=== PATIENT | female | born 1990 | race Two or more races ===

== ENCOUNTER 2017-08-15 20:25 | Emergency (ER) | payer BC, OTHER ==
[~2017-08-15] VITALS: Ht 162.6 cm; Wt 58.0 kg
[2017-08-15 20:27] VITALS: Ht 162.6 cm; Wt 58.0 kg
[2017-08-15] MEDS ORDERED: ACETAMINOPHEN 500 MG TAB PO STA (20:57)
[2017-08-15] MEDS ORDERED: IBUPROFEN 200 MG TAB PO ONE (21:00)
--- NOTE | 2017-08-15 21:04 | ERD ---
ER Documentation Chief Complaint Date/Time DATE: 08/15/17 TIME: 21:00 Chief Complaint sore throat x 7 days, completed abx- amox HPI This is a 26 year old female presents to ER with sore throat and fever x 2 weeks. Patient states she has painful swallowing. No difficulty swallowing or drooling. No shortness of breath or difficult breathing. No chest pain. Patient states about 2 weeks ago she went to an outside facility and was prescribed amoxicillin. Patient states her sore throat improved after being on amoxicillin for a few days. Patient states soon after finishing the medication , she developed another severe sore throat. Patient went to her dentist and was prescribed azithromycin. Patient states she has been not on medication for 2 days and continues to have sore throat and fever. Patient states temperature max of 101.7F at home. She took Tylenol at home with last dose around 2 PM today. ROS All systems reviewed and are negative except as per history of present illness. Medications Home Meds Active Scripts Ibuprofen* (Motrin*) 600 Mg Tab, 600 MG PO Q6, #20 TAB Prov:SIMONE MONSIVAIS MD 08/16/17 Prednisone* (Prednisone*) 20 Mg Tab, 40 MG PO DAILY for 3 Days, TAB Start August 17, 2017 Prov:SIMONE MONSIVAIS MD 08/16/17 Clindamycin Hcl* (Clindamycin Hcl*) 300 Mg Capsule, 300 MG PO QID for 10 Days, CAP Prov:SIMONE MONSIVAIS MD 08/16/17 Hydrocodone/Acetaminophen ([place] 5-325 Tablet) 1 Each Tablet, 1 TAB PO Q6H Y for PAIN, #7 TAB Prov:PEPE REGALADO NP 08/15/17 Amoxicillin* (Amoxicillin*) 500 Mg Cap, 500 MG PO BID for 10 Days, CAP Prov:PEPE REGALADO NP 08/15/17 Discontinued Scripts Ibuprofen* (Motrin*) 400 Mg Tab, 400 MG PO Q6, #30 TAB Prov:PEPE REGALADO NP 08/15/17 Allergies Allergies: Coded Allergies: No Known Allergy (Unverified , 08/16/17) PMhx/Soc Medical and Surgical Hx: pt denies Surgical Hx History of Surgery: No Anesthesia Reaction: No Hx Neurological Disorder: No Hx Respiratory Disorders: No Hx Cardiac Disorders: No Hx Psychiatric Problems: No Hx Miscellaneous Medical Probl: Yes (Sinusitis,Tonsillitis) Hx Alcohol Use: No Hx Substance Use: No Hx Tobacco Use: No Smoking Status: Never smoker Physical Exam Vitals Vital Signs Date Time Temp Pulse Resp B/P Pulse Ox O2 Delivery O2 Flow Rate FiO2 08/15/17 22:54 98.7 89 103/59 98 Room Air 08/15/17 20:27 101.8 112 20 121/80 100 Physical Exam Const: Alert Head: Atraumatic Eyes: Normal Conjunctiva ENT: Normal External Ears, Nose and Mouth. Slight exudate to posterior pharynx and left tonsil. Uvula is midline. No peritonsillar abscess. Neck: Full range of motion..~ No meningismus. Resp: Clear to auscultation bilaterally Cardio: Regular rate and rhythm, no murmurs Abd: Soft, non tender, non distended. Normal bowel sounds Skin: No petechiae or rashes Back: No midline or flank tenderness Ext: No cyanosis, or edema Neur: Awake and alert Psych: Normal Mood and Affect Result Diagram: 08/15/17211208/15/172112 Results 24 hrs Laboratory Tests Test 08/15/17 21:13 White Blood Count 13.210^3/ul Red Blood Count 4.2710^6/ul Hemoglobin 12.6g/dl Hematocrit 38.0% Mean Corpuscular Volume 89.0fl Mean Corpuscular Hemoglobin 29.5pg Mean Corpuscular Hemoglobin Concent 33.2g/dl Red Cell Distribution Width 12.5% Platelet Count 73841^3/UL Mean Platelet Volume 11.6fl Neutrophils % 81.5% Lymphocytes % 10.3% Monocytes % 7.3% Eosinophils % 0.2% Basophils % 0.4% Nucleated Red Blood Cells % 0.0/100WBC Neutrophils # 10.810^3/ul Lymphocytes # 1.410^3/ul Monocytes # 1.010^3/ul Eosinophils # 0.010^3/ul Basophils # 0.110^3/ul Nucleated Red Blood Cells # 0.010^3/ul Sodium Level 140mmol/L Potassium Level 4.2mmol/L Chloride Level 101mmol/L Carbon Dioxide Level 27mmol/L Anion Gap 16 Blood Urea Nitrogen 8mg/dl Creatinine 0.83mg/dl Glucose Level 98mg/dl Lactic Acid Level 0.8mmol/L Calcium Level 9.5mg/dl Monoscreen Negative Current Medications Medications (Trade) Dose Ordered Sig/Mu Route PRN Reason Start Time Stop Time Status Last Admin Dose Admin Ibuprofen (Motrin) 400 mg ONCE ONCE PO 08/15/17 21:00 08/15/17 21:01 DC 08/15/17 21:15 Acetaminophen (Tylenol Tab) 500 mg ONCE STAT PO 08/15/17 20:57 08/15/17 21:00 DC 08/15/17 21:14 Procedures/MDM MDM: This is a 26-year-old female presenting to the emergency department for sore throat and fever 2 weeks. Patient has temp of 101.8F and heart rate 1 12 bpm upon arrival to ED. Patient given Tylenol and Motrin p.o. Labs drawn. Rapid strep, throat culture and Monospot ordered. Differential diagnosis includes but not limited to strep pharyngitis, pneumonia , viral pharyngitis, influenza, coxsackievirus, herpes simplex virus, Nile- Marie virus, Respiratory syncytial virus and otitis media. Patient likely has viral pharyngitis. Patient is appropriate for outpatient management and will be discharged with prescription for Motrin and Amoxicillin. Instructed patient to follow up with primary care provider in the next 2-3 days for reassessment.Return to ED for any high fever, chest pain, difficulty breathing, shortness breath, wheezing, vomiting, diarrhea, abdominal pain or any new or worsening symptoms. Patient verbalizes understanding. All questions answered at discharge. Disclaimer: Inadvertent spelling and grammatical errors are likely due to EHR/ dictation software use and do not reflect on the overall quality of patient care. Also, please note that the electronic time recorded on this note does not necessarily reflect the actual time of the patient encounter. Departure Diagnosis: Primary Impression: Sore throat Condition: Stable PEPE REGALADO NP Aug 15, 2017 21:04
[2017-08-15 21:25] LABS: BASOPHIL # 0.1 10^3/ul (0.0-0.1); BASOPHILS % 0.4 % (0.0-2.0); EOSINOPHILS % 0.2 % (0.0-7.0); HEMOGLOBIN 12.6 g/dl (12.0-16.0); LYMPHOCYTES # 1.4 10^3/ul (0.8-2.9); LYMPHOCYTES % 10.3 % (15.0-51.0); MEAN CORPUSCULAR HEMOGLOBIN 29.5 pg (29.0-33.0); MEAN CORPUSCULAR HGB CONC 33.2 g/dl (32.0-37.0); MEAN PLATELET VOLUME 11.6 fl (7.4-10.4); MONOCYTES % 7.3 % (0.0-11.0); NEUTROPHIL # 10.8 10^3/ul (1.6-7.5); NEUTROPHILS % 81.5 % (39.0-77.0); PLATELET COUNT 174 10^3/UL (140-415); RED BLOOD COUNT 4.27 10^6/ul (4.20-5.40); RED CELL DISTRIBUTION WIDTH 12.5 % (11.5-14.5); WHITE BLOOD COUNT 13.2 10^3/ul (4.8-10.8)
[2017-08-15 21:59] LABS: CALCIUM 9.5 mg/dl (8.4-10.2); CREATININE 0.83 mg/dl (0.44-1.00); POTASSIUM 4.2 mmol/L (3.5-5.1)
[2017-08-15 22:54] VITALS: BP 103/59; PULSE 89; TEMP 98.7
[2017-08-15] MEDS ORDERED: IBUP400T22 PO (23:04)
[2017-08-15] MEDS ORDERED: AMOX500C2 PO (23:04)
[2017-08-15] MEDS ORDERED: HYDR-906 PO (23:19)
[2017-08-16] MEDS ORDERED: IBUP-1542 PO (14:31)
[2017-08-16] MEDS ORDERED: PRED20TA PO (14:31)
[2017-08-16] MEDS ORDERED: CLIN-73 PO (14:31)
== END 2017-08-15 23:30 | disposition home or self-care (01) ==
LOC: FTE 20:25
DX: J02.9 Acute pharyngitis, unspecified (principal)
CPT/HCPCS: 36415; 80048; 83605; 85025; 86308; 87070; 87400; 87880; Z7502; Z7610; 99284

== ENCOUNTER 2017-08-16 11:42 | Emergency (ER) | payer OTHER ==
[~2017-08-16] VITALS: Ht 160 cm; Wt 57.0 kg
[~2017-08-16 11:42] MED LIST: AMOX500C2 PO; HYDR-906 PO; IBUP400T22 PO
[2017-08-16 11:45] VITALS: Ht 160 cm; Wt 57.0 kg
[2017-08-16] MEDS ORDERED: ONDANSETRON 4 MG INJ IV STA (12:12)
[2017-08-16] MEDS ORDERED: KETOROLAC 30 MG INJ IV STA (12:12)
[2017-08-16] MEDS ORDERED: SOD CHLORIDE 0.9% 1,000 ML IV STA (12:12)
[2017-08-16] MEDS ORDERED: ACETAMINOPHEN 325 MG TAB PO ONE (12:30)
[2017-08-16 13:04] LABS: ALBUMIN 4.5 g/dl (3.3-4.9); ALBUMIN/GLOBULIN RATIO 1.02; BILIRUBIN,INDIRECT 0.4 mg/dl (0-1.1); BILIRUBIN,TOTAL 0.4 mg/dl (0.2-1.3); CALCIUM 9.5 mg/dl (8.4-10.2); CREATININE 0.87 mg/dl (0.44-1.00); POTASSIUM 3.8 mmol/L (3.5-5.1); TOTAL PROTEIN 8.9 g/dl (6.1-8.1)
[2017-08-16 13:05] LABS: BASOPHILS % 0.3 % (0.0-2.0); EOSINOPHILS % 0.1 % (0.0-7.0); HEMATOCRIT 37.3 % (37.0-47.0); HEMOGLOBIN 12.5 g/dl (12.0-16.0); LYMPHOCYTES # 1.1 10^3/ul (0.8-2.9); LYMPHOCYTES % 7.7 % (15.0-51.0); MEAN CORPUSCULAR HEMOGLOBIN 29.7 pg (29.0-33.0); MEAN CORPUSCULAR HGB CONC 33.5 g/dl (32.0-37.0); MEAN CORPUSCULAR VOLUME 88.6 fl (82.0-101.0); MONOCYTE # 1.5 10^3/ul (0.3-0.9); MONOCYTES % 10.1 % (0.0-11.0); NEUTROPHIL # 11.7 10^3/ul (1.6-7.5); NEUTROPHILS % 81.2 % (39.0-77.0); PLATELET COUNT 158 10^3/UL (140-415); RED BLOOD COUNT 4.21 10^6/ul (4.20-5.40); RED CELL DISTRIBUTION WIDTH 12.6 % (11.5-14.5); WHITE BLOOD COUNT 14.4 10^3/ul (4.8-10.8)
[2017-08-16] MEDS ORDERED: DEXAMETHASONE 10 MG/ML 1 ML INJ IV ONE (13:30)
[2017-08-16] MEDS ORDERED: CEFTRIAXONE 1 GM/50 ML (PMX) 50 ML IVPB ONE (14:30)
[2017-08-16] MEDS ORDERED: PRED20TA PO (14:31)
[2017-08-16] MEDS ORDERED: IBUP-1542 PO (14:31)
[2017-08-16] MEDS ORDERED: CLIN-73 PO (14:31)
--- NOTE | 2017-08-16 14:36 | ERD ---
ER Documentation Chief Complaint Date/Time DATE: 08/16/17 TIME: 14:33 Chief Complaint FEVER , SORE THROAT X 2 WEEKS HPI This 26-year-old female presents with complaints of fever and sore throat intermittent for the last 2 weeks. She was seen initially and prescribed Augmentin. She has some improvements. Fevers and symptoms worsen over the last few days. She denies cough, vomiting, abdominal pain, diarrhea. She is currently taking amoxicillin and Hope. She was seen here yesterday and had slight leukocytosis with negative flu test, negative strep and negative mono. As well for temperature at triage today. ROS All systems reviewed and are negative except as per history of present illness. Medications Home Meds Active Scripts Ibuprofen* (Motrin*) 600 Mg Tab, 600 MG PO Q6, #20 TAB Prov:SIMONE MONSIVAIS MD 08/16/17 Prednisone* (Prednisone*) 20 Mg Tab, 40 MG PO DAILY for 3 Days, TAB Start August 17, 2017 Prov:SIMONE MONSIVAIS MD 08/16/17 Clindamycin Hcl* (Clindamycin Hcl*) 300 Mg Capsule, 300 MG PO QID for 10 Days, CAP Prov:SIMONE MONSIVAIS MD 08/16/17 Hydrocodone/Acetaminophen ([place] 5-325 Tablet) 1 Each Tablet, 1 TAB PO Q6H Y for PAIN, #7 TAB Prov:PEPE REGALADO NP 08/15/17 Amoxicillin* (Amoxicillin*) 500 Mg Cap, 500 MG PO BID for 10 Days, CAP Prov:PEPE REGALADO NP 08/15/17 Discontinued Scripts Ibuprofen* (Motrin*) 400 Mg Tab, 400 MG PO Q6, #30 TAB Prov:PEPE REGALADO NP 08/15/17 Allergies Allergies: Coded Allergies: No Known Allergy (Unverified , 08/16/17) PMhx/Soc History of Surgery: No Anesthesia Reaction: No Hx Neurological Disorder: No Hx Respiratory Disorders: No Hx Cardiac Disorders: No Hx Psychiatric Problems: No Hx Miscellaneous Medical Probl: Yes (Sinusitis,Tonsillitis) Hx Alcohol Use: No Hx Substance Use: No Hx Tobacco Use: No Smoking Status: Never smoker Physical Exam Vitals Vital Signs Date Time Temp Pulse Resp B/P Pulse Ox O2 Delivery O2 Flow Rate FiO2 08/16/17 13:53 101.0 08/16/17 12:50 104.2 08/16/17 11:45 104.2 133 18 134/66 99 Physical Exam Const: [], Uncomfortable but no apparent distress. Head: Atraumatic Eyes: Normal Conjunctiva ENT: Normal External Ears, Nose and Mouth. TMs normal. Erythema the oropharynx with 2+ tonsils. Slight exudate. Uvula midline and airway patent. Tender anterior cervical lymphadenitis. Neck: Full range of motion..~ No meningismus. Resp: Clear to auscultation bilaterally Cardio: Regular rate and rhythm, no murmurs Abd: Soft, non tender, non distended. Normal bowel sounds Skin: No petechiae or rashes Back: No midline or flank tenderness Ext: No cyanosis, or edema Neur: Awake and alert Psych: Normal Mood and Affect Result Diagram: 08/16/17 1234 08/16/17 1234 Results 24 hrs Laboratory Tests Test 08/16/17 12:34 White Blood Count 14.410^3/ul Red Blood Count 4.2110^6/ul Hemoglobin 12.5g/dl Hematocrit 37.3% Mean Corpuscular Volume 88.6fl Mean Corpuscular Hemoglobin 29.7pg Mean Corpuscular Hemoglobin Concent 33.5g/dl Red Cell Distribution Width 12.6% Platelet Count 76295^3/UL Mean Platelet Volume 12.0fl Neutrophils % 81.2% Lymphocytes % 7.7% Monocytes % 10.1% Eosinophils % 0.1% Basophils % 0.3% Nucleated Red Blood Cells % 0.0/100WBC Neutrophils # 11.710^3/ul Lymphocytes # 1.110^3/ul Monocytes # 1.510^3/ul Eosinophils # 0.010^3/ul Basophils # 0.010^3/ul Nucleated Red Blood Cells # 0.010^3/ul Sodium Level 140mmol/L Potassium Level 3.8mmol/L Chloride Level 101mmol/L Carbon Dioxide Level 26mmol/L Anion Gap 17 Blood Urea Nitrogen 9mg/dl Creatinine 0.87mg/dl Glucose Level 95mg/dl Calcium Level 9.5mg/dl Total Bilirubin 0.4mg/dl Direct Bilirubin 0.00mg/dl Indirect Bilirubin 0.4mg/dl Aspartate Amino Transf (AST/SGOT) 23IU/L Alanine Aminotransferase (ALT/SGPT) 40IU/L Alkaline Phosphatase 88IU/L Total Protein 8.9g/dl Albumin 4.5g/dl Globulin 4.40g/dl Albumin/Globulin Ratio 1.02 Current Medications Medications (Trade) Dose Ordered Sig/Mu Route PRN Reason Start Time Stop Time Status Last Admin Dose Admin Sodium Chloride (NS) 1,000 ml @ 1,000 mls/hr Q1H STAT IV 08/16/17 12:12 08/16/17 13:11 DC 08/16/17 12:45 Ondansetron HCl (Zofran Inj) 4 mg ONCE STAT IV 08/16/17 12:12 08/16/17 12:14 DC 08/16/17 12:44 Ketorolac Tromethamine (Toradol) 30 mg ONCE STAT IV 08/16/17 12:12 08/16/17 12:14 DC 08/16/17 12:44 Acetaminophen (Tylenol Tab) 650 mg ONCE ONCE PO 08/16/17 12:30 08/16/17 12:31 DC 08/16/17 12:44 Dexamethasone 10 mg 10 mg ONCE ONCE IV 08/16/17 13:30 08/16/17 13:31 DC 08/16/17 13:14 Ceftriaxone Sodium (Rocephin) 50 ml @ 100 mls/hr ONCE ONCE IVPB 08/16/17 14:30 08/16/17 14:59 08/16/17 14:15 Procedures/MDM CBC shows white blood cell count of 14.4. Additional CMP shows no acute abnormalities. Monospot is negative. Patient is given 1 L normal saline IV, Toradol 30 mg IV and Decadron 10 mg and Tylenol. Patient felt much better after observation treatment. Patient has no hot potato voice, or neck swelling concerning for abscess or redness or drainage or swelling or changes in voice. Patient has signs or symptoms of what appear to be likely viral pharyngitis. No evidence of abscess, airway obstruction. Patient manually was counseled on need for fever control, fluids. She is requesting stronger antibiotics. Patient was counseled that is likely viral but given the duration request patient was given Rocephin 1 g IV and will be treated with clindamycin, short course of prednisone, and ibuprofen and continuation of Tylenol or Hope and primary care follow-up. She is also referred to ENT by request for further evaluation and treatment persistent symptoms. The patient was stable with no new complaints during the ER course. Clinically, there is no current evidence to suggest meningitis, sepsis, acute abdomen, pneumonia, acute coronary syndrome , pulmonary embolism, or any other emergent condition appearing to require further evaluation or hospitalization. The patient should certainly return for any new or worsening symptoms per the aftercare instructions. They should otherwise follow-up with her primary care doctor for reevaluation this week. Departure Diagnosis: Primary Impression: Sore throat Condition: Stable Patient Instructions: Pharyngitis, Viral Referrals: ZARIA BLEVINS MD,BETH SEBASTIAN MD, MD Additional Instructions: Likely viral pharyngitis should resolve within the next week and will continue antibiotics given the duration of symptoms.. Drink plenty of fluids at home. Recheck with primary doctor or ENT for further evaluation or return to ER for new or worsening symptoms. Take Tylenol every 4 hours and ibuprofen every 6 hours for fever. SIMONE MONSIVAIS MD Aug 16, 2017 14:36
[2017-08-16 14:54] VITALS: BP 119/67; PULSE 81; RESP 19; TEMP 98.4
== END 2017-08-16 14:55 | disposition home or self-care (01) ==
LOC: FTE 11:42
DX: J02.9 Acute pharyngitis, unspecified (principal)
CPT/HCPCS: 36415; 80053; 85025; 86308; 96374; 96375; J0696; J1100; J1885; J2405; J7030; Z7502; Z7610